=== PATIENT | male | born 1990 | race Hispanic/Latino ===

== ENCOUNTER 2022-05-16 09:56 | Emergency (ER) | payer SELFPAY ==
[~2022-05-16] VITALS: Ht 439.4 cm; Wt 85.0 kg
[2022-05-16] MEDS ORDERED: AMOX/K CLAV875 M1 PO (11:37)
[2022-05-16 12:05] VITALS: BP 122/67
== END 2022-05-16 12:10 | disposition home or self-care (01) | DRG 153 ==
LOC: ED 09:56
DX: J06.9 Acute upper respiratory infection, unspecified (principal)